=== PATIENT | male | born 1990 | race Caucasian/White ===

== ENCOUNTER 2019-11-27 03:40 | Emergency (ER) | payer SELFPAY ==
--- NOTE | 2019-11-27 03:45 | ECG_ITS ---
Measurements Intervals [place] Rate: 115 P: 57 MO: 153 QRS: 56 QRSD: 98 T: 57 QT: 314 QTc: 435 SINUS TACHYCARDIA ABNORMAL RHYTHM ECG No previous ECG available for comparison Electronically Signed On 11-27-2019 9:13:59 ENGINEERING COORDINATOR by Noah Arriola M.D. [id number]
--- NOTE | 2019-11-27 03:45 | XR_ITS ---
WS: [id number] XR chest 1V portable [id number] REASON FOR EXAM: cough FINDINGS: Both lung schneider are well aerated. No definite pneumonic consolidation, pulmonary edema, or pleural effusion. The heart was not enlarged. No osseous abnormalities. The hilum and apices are normal. XR/XR chest 1V portable [id number] IMPRESSION: No active cardiopulmonary changes.
--- NOTE | 2019-11-27 03:51 | ED_ITS ---
Entered by Jackie Bejarano, acting as scribe for Kay Taylor HPI - Seizure General: Chief Complaint: Seizure Stated Complaint: SEIZURE LIKE ACTIVITY Time Seen by Provider: 11/27/19 03:41 Source: patient and EMS Mode of arrival: EMS History of Present Illness: HPI Narrative: 29 y/o male presents to the ED with complaint of reported seizures. Pt told EMS he has had 3 seizures in 2 days and does not take any regular medications or see a Neurologist. Pt was very vague in his recount of the story. EMS states he walked to the cot with no difficulty. MD complaint: seizure and possible seizure Trauma: No Seizure History: Yes Place: Home Possible Precipitating Event: other (stress) Associated symptoms: Deny chest pain, chills, confusion, diaphoresis, fever(s), malaise or syncope Review of Systems General: Reports: other (negative unless marked) Const: Denies: fever, chills, body aches, fatigue, malaise or diaphoresis Eyes: Denies: change in vision or blurry vision ENMT: Denies: throat pain, painful swallowing, hoarseness, ear pain, ear discharge, Change in hearing or nasal discharge Card: Denies: chest pain, palpitations, irregular heart rhythm, syncope, pre- syncope, shortness of breath on exertion or shortness of breath when lying down Resp: Denies: shortness of breath, productive cough, non-productive cough, wheezing, coughing up blood or chest congestion GI: Denies: abdominal pain, nausea, vomiting, vomiting blood, coffee grounds in vomit, diarrhea, constipation, cramping, blood in stool or black tarry stool : Denies: flank pain, difficulty urinating, painful urination, urinary frequency, urinary urgency, decreased urine ouput, urinary incontinence or blood in urine Musc: Denies: neck pain, back pain, extremity pain, extremity swelling, joint pain, joint swelling, joint warmth or joint stiffness Skin/Breast: Denies: rash, skin tenderness or yellow skin Neuro: Denies: headache, numbness in extremities, weakness in extremities, changes in sensation, lack of coordination, difficulty walking, dizziness, vertigo or confusion Endo: Denies: excessive thirst, tired all the time, cold intolerance, excessive sweating, flushing or hot flashes Jassi/Lymph: Denies: easy bruising, easy bleeding, petechiae or enlarged lymph nodes All/Imm: Denies: hives, throat swelling, tongue swelling, facial swelling or acute wheezing PFSH ED PFSH: Social History Smoking and tobacco status: current every day smoker Physical Exam Const: COMMON NORMALS: no apparent distress, oriented x3, no limitations, healthy appearing and well nourished EXAM LIMITATIONS: no altered mental status GENERAL APPEARANCE: cooperative, well kempt and well developed ORIE NTATION/CONSCIOUSNESS: Yes awake HENMT: COMMON NORMALS: normocephalic, head/scalp atraumatic, hearing grossly normal bilaterally, external ears normal, EAC's normal, external nose normal and moist oral mucous membranes HEAD & SCALP: normal to inspection, normocephalic and atraumatic FACE & SINUS: normal facial exam and face symmetric NOSE: external nose normal and nares normal EXTERNAL EAR: Yes external ears normal EXTERNAL AUDITORY CANAL: EAC's normal MOUTH: oral and palatal mucosa normal and tongue normal Eye: COMMON NORMALS: PERRL, EOMs intact bilaterally, conjunctivae normal and no scleral icterus GENERAL EYE: normal appearance of both eyes and normal light reflex CONJUNCTIVA: Yes conjunctivae normal SCLERA: sclerae normal CORNEA: Yes corneas normal PUPIL: Yes PERRL DIRECT OPHTHALMOSCOPY: Yes normal light reflex Neck/C-Spine: COMMON NORMALS: full ROM, no lymphadenopathy, supple, no meningeal signs and no JVD GENERAL: Yes normal visual inspection and Yes trachea midline CERVICAL SPINE: Yes cervical ROM normal Chest: COMMONS NORMALS: inspection of chest normal and palpation of chest normal Resp: COMMON NORMALS: normal respiratory effort, no retractions, no use of accessory muscles and clear to auscultation bilaterally EFFORT & INSPECTION: Yes able to speak in complete sentences AUSCULTATION: clear to auscultation bilaterally Cardio: COMMON NORMALS: no JVD, regular rate, regular rhythm, S1 normal heart sound, S2 normal heart sound, no gallops, no clicks, no murmurs and no rub JUGULAR VENOUS DISTENTION: no JVD RATE: regular rate RHYTHM: regular rhythm HEART SOUNDS: S1 normal and S2 normal GI: COMMON NORMALS: soft to palpation, non-tender, no hepatosplenomegaly and no masses INSPECTION: Yes normal to inspection PALPATION: Yes soft and Yes no hepatosplenomegaly : COMMON NORMALS: Yes no CVA tenderness BLADDER/KIDNEY EXAM: Yes no CVA tenderness Back/Pelvis: COMMON NORMALS: no CVA tenderness, thoracic and lumbar spine normal to inspection, no thoracic nor lumbar tenderness and thoraco-lumbar ROM normal Extremity: COMMON NORMALS: normal to inspection, full ROM, normal capillary refill, no joint enlargement, no clubbing, cyanosis or edema and no calf tenderness Neuro: COMMON NORMALS: oriented x3, CN's II-XII intact bilaterally, moves all extremities, no focal motor deficits and no sensory deficits noted MENINGEAL SIGNS: Yes no meningeal signs Psych: APPEARANCE: Yes well kempt Skin: COMMON NORMALS: no rashes or lesions noted, skin turgor normal, no jaundice, no petechiae and no mottling GENERAL SKIN EXAM: no rashes or lesions noted and turgor normal Course Vital Signs: Vital signs: Vital Signs Temperature 98.4 F 11/27/19 04:02 Pulse Rate 110 H 11/27/19 04:02 Respiratory Rate 16 11/27/19 04:02 Blood Pressure 142/100 11/27/19 04:02 Pulse Oximetry 96 11/27/19 04:02 MDM - Seizure MDM Narrative: Medical decision making narrative: 0530 -Mr. Mabry is sleepy but will arouse. He would not give us the name of anyone that he can call to come pick him up. We will continue to monitor him until he is suitable to either be discharged to his own care or he can give us the name of someone to evaluate him. Urinalysis is still pending. There is no sign of trauma so I therefore do not believe he needs any CT scans or further imaging. Lab Data: Attestation: I reviewed the patient's lab results. Labs: Lab Results 11/27/19 11/27/19 Range/Units 03:55 03:55 WBC 11.1 H (4.0-10.0) 10^3/ uL RBC 5.22 (4.1-5.3) 10^6/u L Hgb 14.7 (11.7-16.6) g/dL Hct 42.7 (42.0-52.0) % MCV 81.8 (80-94) fL MCH 28.2 (28.0-34.0) pg MCHC 34.4 (30.0-36.0) g/dL RDW 13.2 (12.1-15.1) % Plt Count 214 (130-400) 10^3/c mm MPV 10.3 (7.4-10.4) fL Neut % (Auto) 78.0 % Lymph % (Auto) 13.7 % [place] % (Auto) 7.3 % Eos % (Auto) 0.5 % Baso % (Auto) 0.3 % Neut # (Auto) 8.7 H (1.8-7.7) 10^3/u L Lymph # (Auto) 1.5 (0.8-4.8) 10^3/u L [place] # (Auto) 0.8 (0.2-0.9) 10^3/u L Eos # (Auto) 0.1 (0.0-0.8) 10^3/u L Baso # (Auto) 0.0 (0.0-0.1) 10^3/u L Nucleated RBC % (a uto) 0 % Nucleated RBCs # 0.0 /100WBC Sodium 138 (136-145) mmol/L Potassium 3.7 (3.5-5.1) mmol/L Chloride 101 (98-107) mmol/L Carbon Dioxide 25 (22-29) mmol/L Anion Gap 15.7 (5-19) BUN 16 (6-20) mg/dL Creatinine 1.3 H (0.7-1.2) mg/dL GFR Calculation 65.3 L (90-130) mL/min Glucose 132 H (65-115) mg/dL Calcium 10.0 (8.5-10.5) mg/dL Total Bilirubin 0.2 (0.15-1.2) mg/dL AST 18 (0-40) U/L ALT 21 (0-41) U/L Alkaline Phosphata se 88 (40-130) IU/L Total Protein 8.0 (6.6-8.7) g/dL Albumin 4.0 (3.5-5.2) g/dL Globulin 4.0 (1.3-4.6) g/dL Ethyl Alcohol < 10 (0-10) mg/dL EKG Data^: EKG 1: Attestation: I personally reviewed and interpreted this EKG as follows: EKG interpretation date: 11/27/19 EKG interpretation time: 05:04 Interpretation: Sinus tachycardia 115 beats a minute, no acute ST-T wave changes. Artifact present. Discharge Plan Discharge Condition: Stable Sign Out Sign Out Data: Sign Out Comment: Case turned over to Dr. Cordova at change of shift. Last updated by Kay Taylor at 11/27/19 05:36 Coding Level of Care Code ED Fashion Journalist for Chg Fwd Exam Comprehensive The documentation recorded by the scribeDarci Ashley, accurately reflects the service I personally performed and the decisions made by me, Kay Taylor Nov 27, 2019 03:40
[2019-11-27] MEDS: LORazepam 2 mg/mL INJ 1 mL 1 MG IVP (03:58)
[2019-11-27] MEDS: sodium chloride 0.9% 1,000 ML 999 ML IV (03:58)
[2019-11-27] MEDS: ondansetron 2 mg/ML SDV 2 mL 4 MG IVP (03:59)
[2019-11-27 04:00] LABS: Basophils % 0.3 %; Eosinophils # 0.1 10^3/uL (0.0-0.8); Eosinophils % 0.5 %; Hematocrit 42.7 % (42.0-52.0); Hemoglobin 14.7 g/dL (11.7-16.6); Lymphocytes # 1.5 10^3/uL (0.8-4.8); Lymphocytes % 13.7 %; Mean Corpuscular HGB Conc 34.4 g/dL (30.0-36.0); Mean Corpuscular Hemoglobin 28.2 pg (28.0-34.0); Mean Corpuscular Volume 81.8 fL (80-94); Mean Platelet Volume 10.3 fL (7.4-10.4); Monocytes # 0.8 10^3/uL (0.2-0.9); Monocytes % 7.3 %; Neutrophils # 8.7 10^3/uL (1.8-7.7); Nucleated Red Blood Cells % 0 %; Platelet Count 214 10^3/cmm (130-400); Red Blood Count 5.22 10^6/uL (4.1-5.3); Red Cell Distribution Width 13.2 % (12.1-15.1); White Blood Count 11.1 10^3/uL (4.0-10.0)
[2019-11-27 04:02] VITALS: BP 142/100; PULSE 110; RESP 16; TEMP 36.9; O2SAT 96; BMI 22.4
[2019-11-27 04:14] LABS: Alanine Aminotransferase 21 U/L (0-41); Alkaline Phosphatase 88 IU/L (40-130); Anion Gap 15.7 (5-19); Aspartate Amino Transferase 18 U/L (0-40); Blood Urea Nitrogen 16 mg/dL (6-20); Carbon Dioxide 25 mmol/L (22-29); Chloride 101 mmol/L (98-107); Glomerular Filtration Rate 65.3 mL/min (90-130); Glucose 132 mg/dL (65-115); Potassium 3.7 mmol/L (3.5-5.1); Sodium 138 mmol/L (136-145); Total Bilirubin 0.2 mg/dL (0.15-1.2)
--- NOTE | 2019-11-27 04:17 | PC.NURSE ---
Introduced self to patient and initiated vital signs. Patient presents A&O x 4. NAD, ABCs intact, MAEW and agreeable to treatment. Respirations are even and unlabored. Pt states that the chief complaint for the ER visit today is due to seizures witnessed by mother but not EMS. IV observed in left AC. Pt denies any vision disturbances or lightheadedness. Bed left in lowest position in semi-fowlers with side rails up. Reassured patient of needs and will continue to monitor.
[2019-11-27 04:21] LABS: Alcohol Level < 10 mg/dL (0-10)
[2019-11-27 05:59] VITALS: BP 128/87; PULSE 106; RESP 16; O2SAT 99
[2019-11-27 06:17] LABS: Add Urine Culture? No; Amorphous Sediment Urine 2+; Bacteria Urine 1+; Bilirubin Urine Neg (NEGATIVE); Blood Urine Neg (Negative); Glucose Urine UA Norm (Normal); Ketones Urine Negative (Negative); Leukocyte Esterase Urine Negative (Negative); Nitrate Urine Negative (Negative); Protein Urine Neg (Negative); Specific Gravity, Urine 1.025 (1.005-1.030); Urine Appearance Hazy (CLEAR); Urine Color Yellow (Yellow); Urobilinogen Urine Norm (Negative); pH Urine 5 (5-7)
[2019-11-27 06:21] LABS: Barbiturates Screen Urine Negative (Negative); Benzodiazepines Screen Urine Negative (Negative); Cocaine Screen Urine Negative (Negative); Opiate Screen Urine Negative (Negative); PCP Screen Urine Negative (Negative); THC Screen Urine Negative (Negative)
[2019-11-27 06:23] LABS: Amphetamines Screen Urine Positive (Negative)
--- NOTE | 2019-11-27 10:18 | PC.SOCIAL ---
Was contacted by [employer] C[employer] to see if patient could get transportation home. It appears that patient may have Medicaid. Called [facility] and they state patient is inactive and his insurance on 06/30/19. Called samantha Gallardodata warehouse developer back and let her know. There are no transportation resources for patient. He will either need to find a ride or pay for a cab.
== END 2019-11-27 05:59 | disposition home or self-care (01) ==
PROVIDERS: Emergency Medicine; Emergency Provider Emergency Medicine
DX: R56.9 Unspecified convulsions (principal); F17.200 Nicotine dependence, unspecified, uncomplicated
CPT/HCPCS: 71045; 80053; 80307; 81001; 85025; 93005; 96360; 96361; 96374; 96375; 99284; A9270; J2060; J2405; J7030

== ENCOUNTER 2020-06-19 12:12 | Emergency (ER) | payer SELFPAY ==
[2020-06-19 12:13] VITALS: O2SAT 96
[2020-06-19 12:21] VITALS: BP 120/68; PULSE 125; RESP 18; TEMP 37.1; O2SAT 93; BMI 30.3
--- NOTE | 2020-06-19 12:21 | XRR_ITS ---
PROCEDURE INFORMATION: Exam: XR Chest, 1 View Exam date and time: 06/19/2020 12:48 PM Age: 30 years old Clinical indication: Other: Seizure TECHNIQUE: Imaging protocol: XR of the chest Views: 1 view. COMPARISON: CR XR chest 1V portable [id number] 11/27/2019 3:46 AM FINDINGS: Lungs: Unremarkable. No consolidation. Pleural space: Unremarkable. No pleural effusion. No pneumothorax. Heart/Mediastinum: Unremarkable. No cardiomegaly. Bones/joints: Unremarkable. XR/XR chest 1V portable [id number] IMPRESSION: No acute findings.
--- NOTE | 2020-06-19 12:21 | ECG_ITS ---
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 Measurements Intervals [place] Rate: 91 P: 47 HI: 139 QRS: 49 QRSD: 91 T: 62 QT: 325 QTc: 401 Interpretive Statements SINUS RHYTHM WITH MARKED SINUS ARRHYTHMIA Compared to ECG 11/27/2019 05:04:31 Sinus tachycardia no longer present Electronically Signed On 06-19-2020 17:01:41 CDT by Katrin Harvey M.D. [id number]
[2020-06-19 12:34] LABS: Basophils # 0.1 10^3/uL (0.0-0.1); Basophils % 0.9 %; Eosinophils # 0.3 10^3/uL (0.0-0.8); Eosinophils % 2.4 %; Hematocrit 48.4 % (42.0-52.0); Hemoglobin 15.9 g/dL (11.7-16.6); Mean Corpuscular HGB Conc 32.9 g/dL (30.0-36.0); Mean Corpuscular Hemoglobin 29.7 pg (28.0-34.0); Mean Corpuscular Volume 90.5 fL (80-94); Mean Platelet Volume 10.7 fL (7.4-10.4); Monocytes # 1.3 10^3/uL (0.2-0.9); Monocytes % 9.4 %; Neutrophils # 6.11 10^3/uL (1.8-7.7); Nucleated Red Blood Cells % 0 %; Platelet Count 289 10^3/cmm (130-400); Red Blood Count 5.35 10^6/uL (4.1-5.3); Red Cell Distribution Width 13.2 % (12.1-15.1); White Blood Count 13.9 10^3/uL (4.0-10.0)
[2020-06-19 12:56] LABS: Alanine Aminotransferase 47 U/L (0-41); Albumin Level 4.9 g/dL (3.5-5.2); Alkaline Phosphatase 89 IU/L (40-130); Anion Gap 33.7 (5-19); Aspartate Amino Transferase 40 U/L (0-40); Blood Urea Nitrogen 19 mg/dL (6-20); Calcium 10.1 mg/dL (8.5-10.5); Chloride 97 mmol/L (98-107); Globulin 3.8 g/dL (1.3-4.6); Glucose 148 mg/dL (65-115); Osmolality Calculated 281 mOsm/kg (285-295); Potassium 3.7 mmol/L (3.5-5.1); Sodium 136 mmol/L (136-145); Total Bilirubin 0.3 mg/dL (0.15-1.2); Total Protein 8.7 g/dL (6.6-8.7)
[2020-06-19 13:00] LABS: Slide Review Slide Review Perform
--- NOTE | 2020-06-19 13:08 | W.ED.SEIZURE ---
HPI - Seizure General: Chief Complaint: Seizure Stated Complaint: SEIZURE LIKE ACTIVITY Time Seen by Provider: 06/19/20 12:13 Source: patient Mode of arrival: ambulatory Limitations: no limitations History of Present Illness: HPI Narrative: Gurmeet is a nice 30-year-old male who comes in after having a seizure. Patient has a history of seizures and takes medicine for this. Patient arrives to the ER postictal still and cannot remember what he is supposed to take for seizures. He does see Dr. Louis. Patient does not think he had loss of sleep and he has not had any alcohol recently. Patient was at work when he went into the bathroom and they are heard him shaking on the floor. Patient denies any pain focally other than just feeling sore and achy all over. He denies any nausea vomiting, fever or any other recent ill type symptoms. EMS noted the patient was postictal in route but is improved upon arrival here. Seizure History: Yes Associated symptoms: Deny chest pain, chills, confusion, diaphoresis, fever(s), malaise or syncope Review of Systems Const: Denies: fever(s), chills, body aches, fatigue, malaise or diaphoresis Eyes: Denies: change in vision, blurry vision, photophobia, eye discomfort, eye discharge or eye redness ENMT: Denies: throat pain, odynophagia, hoarseness, swelling of lips/tongue, ear or mastoid pain, ear discharge, change in hearing or nasal discharge Card: Denies: chest pain, palpitations, irregular heart rhythm, edema, lightheadedness, syncope, pre-syncope, dyspnea on exertion or orthopnea Resp: Denies: dyspnea, productive cough, non-productive cough, wheezing, hemoptysis or chest congestion GI: Denies: abdominal pain, nausea, vomiting, hematemesis, coffee ground emesis, heartburn, diarrhea, constipation, GI cramping, hematochezia or melena : Denies: flank pain, dysuria, urinary frequency, urinary urgency or hematuria Musc: Denies: neck pain, back pain, extremity pain, extremity swelling, joint pain, joint swelling, joint redness, joint warmth or joint stiffness Skin/Breast: Denies: rash, pruritus, erythema or skin tenderness Neuro: Denies: headache(s), numbness in extremities, weakness in extremities, sensory changes, lack of coordination, difficulty walking, dizziness, vertigo, confusion, Slurred speech present or seizure-like activity Jassi/Lymph: Denies: easy bruising, easy bleeding, petechiae, purpura or enlarged lymph nodes All/Imm: Denies: urticaria, throat swelling, tongue swelling, facial swelling or acute wheezing PFSH ED PFSH: Medical History (Updated 06/19/20 @ 15:18 by Kay Taylor) Seizures Social History Smoking and tobacco status: current every day smoker Current gender identity: Male Physical Exam Const: COMMON NORMALS: no acute distress, patient oriented x3, no limitations, healthy appearing and well nourished GENERAL APPEARANCE: cooperative, well kempt and well developed HENMT: COMMON NORMALS: normocephalic, atraumatic, external ears normal, EAC's normal and Normal external nose present HEAD & SCALP: normal to inspection, normocephalic and atraumatic FACE & SINUS: normal facial exam and face symmetric NOSE: Normal external nose present and Normal nares present EXTERNAL EAR: Yes external ears normal EXTERNAL AUDITORY CANAL: EAC's normal MOUTH: Normal oral and palatal mucosa present, lip normal and tongue normal Eye: COMMON NORMALS: Equal, round and reactive pupils present and conjunctivae normal GENERAL EYE: appearance normal, both eyes and all related structures ALIGNMENT: Yes alignment normal PERIORBITAL: periorbital findings normal EYELID: eyelids normal CONJUNCTIVA: Yes conjunctivae normal SCLERA: sclerae normal PUPIL: Yes Equal, round and reactive pupils present Neck/C-Spine: COMMON NORMALS: full ROM, no lymphadenopathy, supple, no meningeal signs and no JVD GENERAL: Yes normal visual inspection and Yes trachea midline Chest: COMMONS NORMALS: normal inspection of the chest and normal palpation of entire chest wall Resp: COMMON NORMALS: normal respiratory effort, No retractions, No use of accessory muscles and clear to auscultation bilaterally EFFORT & INSPECTION: Yes able to speak in complete sentences and Yes symmetric chest movement AUSCULTATION: clear to auscultation bilaterally, no crackles, no rales, no rhonchi and no wheezes Cardio: COMMON NORMALS: no JVD, regular rate, regular rhythm, S1 normal heart sound present and S2 normal heart sound present RATE: regular rate RHYTHM: regular rhythm HEART SOUNDS: S1 normal heart sound present, S2 normal heart sound present, no click, no gallops, no murmurs, no rubs and abnormal split S2 GI: COMMON NORMALS: Soft to palpation and No hepatosplenomegaly present PALPATION: Yes Soft to palpation, No Tenderness to palpation present (GI), No Guarding due to palpation present (GI), No Rigid due to palpation, Yes No hepatosplenomegaly present, No Hernia present, No Palpable mass present and No Pulsatile mass present : COMMON NORMALS: Yes no CVA tenderness BLADDER/KIDNEY EXAM: Yes no CVA tenderness Back/Pelvis: COMMON NORMALS: no CVA tenderness, thoracic and lumbar spine normal to inspection, no thoracic nor lumbar tenderness and thoraco-lumbar ROM normal Extremity: COMMON NORMALS: normal to inspection, full ROM, capillary refill normal, no joint enlargement, no clubbing, cyanosis or edema and no calf tenderness Neuro: COMMON NORMALS: patient oriented x3, CN's II-XII intact bilaterally, moves all extremities, no focal motor deficits and no sensory deficits noted MENINGEAL SIGNS: Yes no meningeal signs SPEECH: speech normal Psych: COMMON NORMALS: mental status grossly normal, Normal thought process present, cooperative, normal affect, speech normal and activity/motor behavior normal APPEARANCE: Yes well kempt SPEECH: Yes normal speech THOUGHT PROCESS: Normal thought process present Skin: COMMON NORMALS: no rashes or lesions noted, turgor normal, no jaundice, no petechiae and no mottling GENERAL SKIN EXAM: no rashes or lesions noted and turgor normal Course Vital Signs: Vital signs: Vital Signs Temperature 98.8 F 06/19/20 12:21 Pulse Rate 125 H 06/19/20 12:21 Respiratory Rate 18 06/19/20 12:21 Blood Pressure 120/68 06/19/20 12:21 Pulse Oximetry 93 06/19/20 12:21 MDM - Seizure MDM Narrative: Medical decision making narrative: Gurmeet is a nice 30-year-old male comes after breakthrough seizure. I am concerned about a possible toxic ingestion. He has normal lactate but a profound anion gap. Acetaminophen, ketones and other causes for an anion gap are negative. It is possible he may have cleared his lactate quickly but the acidosis is not resolved. He denies any toxic alcohol ingestion or other illicit substance ingestions. Secondary to degree of this though I have endorsed the case to Dr. Parry who agrees to admit the patient for further evaluation and care. 1611 -the patient has decided he wants to go. He understands the risks of leaving including or severe permanent disability. He would not stay long enough for me to give him written instructions but I did review with him in person seizure precautions. Repeat BMP is pending I still think his acidosis is likely related to the seizure as clinically the patient appears stable. He was instructed not to drive and to follow all seizure precautions which she says he is very familiar with. He will take his seizure medications as he is supposed to. Again I advised the patient at length including in front of his girlfriend but despite my warnings the patient wants to leave AGAINST MEDICAL ADVICE. Lab Data: Labs: Lab Results 06/19/20 06/19/20 06/19/20 Range/Units 12:04 12:04 12:04 WBC 13.9 H (4.0-10.0) 10^3/ uL RBC 5.35 H (4.1-5.3) 10^6/u L Hgb 15.9 (11.7-16.6) g/dL Hct 48.4 (42.0-52.0) % MCV 90.5 (80-94) fL MCH 29.7 (28.0-34.0) pg MCHC 32.9 (30.0-36.0) g/dL RDW 13.2 (12.1-15.1) % Plt Count 289 (130-400) 10^3/c mm MPV 10.7 H (7.4-10.4) fL Neut % (Auto) 44.0 % Lymph % (Auto) 43.0 % [place] % (Auto) 9.4 % Eos % (Auto) 2.4 % Baso % (Auto) 0.9 % Neut # (Auto) 6.11 (1.8-7.7) 10^3/u L Lymph # (Auto) 6.0 H (0.8-4.8) 10^3/u L [place] # (Auto) 1.3 H (0.2-0.9) 10^3/u L Eos # (Auto) 0.3 (0.0-0.8) 10^3/u L Baso # (Auto) 0.1 (0.0-0.1) 10^3/u L Nucleated RBC % (a uto) 0 % Nucleated RBCs # 0.0 /100WBC Specimen Type Sample Site ABG pH (7.35-7.45) ABG pCO2 (35-45) mmHg ABG pO2 (80.0-100.0) mmH g ABG HCO3 (22-26) mmol/L ABG Base Excess (-2.0-2.0) mmol/ L Daniel Test Hematocrit (42-52) % O2 Delivery Device FiO2 % Lockstitch Sleeve Setter ID Sodium 136 (136-145) mmol/L Potassium 3.7 (3.5-5.1) mmol/L Chloride 97 L (98-107) mmol/L Carbon Dioxide 9 L (22-29) mmol/L Anion Gap 33.7 H (5-19) BUN 19 (6-20) mg/dL Creatinine 1.5 H (0.7-1.2) mg/dL GFR Calculation 55.0 L (90-130) mL/min Glucose 148 H (65-115) mg/dL Calculated Osmolal ity 281 L (285-295) mOsm/k g Lactic Acid (0.5-2.2) mmol/L Calcium 10.1 (8.5-10.5) mg/dL Magnesium 2.0 (1.7-2.3) mg/dL Total Bilirubin 0.3 (0.15-1.2) mg/dL AST 40 (0-40) U/L ALT 47 H (0-41) U/L Alkaline Phosphata se 89 (40-130) IU/L Creatine Kinase 325 H* (39-308) U/L Total Protein 8.7 (6.6-8.7) g/dL Albumin 4.9 (3.5-5.2) g/dL Globulin 3.8 (1.3-4.6) g/dL Urine Color (Yellow) Urine Appearance (CLEAR) Urine pH (5-7) Ur Specific Gravit y (1.005-1.030) Urine Protein (Negative) Urine Glucose (UA) (Normal) Urine Ketones (Negative) Urine Blood (Negative) Urine Nitrate (Negative) Urine Bilirubin (NEGATIVE) Urine Urobilinogen (Negative) mg/dL Ur Leukocyte Taty ase (Negative) Salicylates < 0.3 L (3-10) mg/dL Urine Opiates Scre en (Negative) ng/mL Acetaminophen < 5.0 L (10-30) ug/mL Ur Barbiturates Sc reen (Negative) ng/mL Ur Phencyclidine S crn (Negative) ng/mL Ur Amphetamines Sc reen (Negative) ng/mL U Benzodiazepines Scrn (Negative) ng/mL Urine Cocaine Scre en (Negative) ng/mL U Marijuana (THC) Screen (Negative) ng/mL Ethyl Alcohol < 10 (0-10) mg/dL Serum Ketones (Negative) 06/19/20 06/19/20 06/19/20 Range/Units 12:04 13:30 13:51 WBC (4.0-10.0) 10^3/ uL RBC (4.1-5.3) 10^6/u L Hgb (11.7-16.6) g/dL Hct (42.0-52.0) % MCV (80-94) fL MCH (28.0-34.0) pg MCHC (30.0-36.0) g/dL RDW (12.1-15.1) % Plt Count (130-400) 10^3/c mm MPV (7.4-10.4) fL Neut % (Auto) % Lymph % (Auto) % [place] % (Auto) % Eos % (Auto) % Baso % (Auto) % Neut # (Auto) (1.8-7.7) 10^3/u L Lymph # (Auto) (0.8-4.8) 10^3/u L [place] # (Auto) (0.2-0.9) 10^3/u L Eos # (Auto) (0.0-0.8) 10^3/u L Baso # (Auto) (0.0-0.1) 10^3/u L Nucleated RBC % (a uto) % Nucleated RBCs # /100WBC Specimen Type Sample Site ABG pH (7.35-7.45) ABG pCO2 (35-45) mmHg ABG pO2 (80.0-100.0) mmH g ABG HCO3 (22-26) mmol/L ABG Base Excess (-2.0-2.0) mmol/ L Daniel Test Hematocrit (42-52) % O2 Delivery Device FiO2 % Lockstitch Sleeve Setter ID Sodium (136-145) mmol/L Potassium (3.5-5.1) mmol/L Chloride (98-107) mmol/L Carbon Dioxide (22-29) mmol/L Anion Gap (5-19) BUN (6-20) mg/dL Creatinine (0.7-1.2) mg/dL GFR Calculation (90-130) mL/min Glucose (65-115) mg/dL Calculated Osmolal ity (285-295) mOsm/k g Lactic Acid 2.1 (0.5-2.2) mmol/L Calcium (8.5-10.5) mg/dL Magnesium (1.7-2.3) mg/dL Total Bilirubin (0.15-1.2) mg/dL AST (0-40) U/L ALT (0-41) U/L Alkaline Phosphata se (40-130) IU/L Creatine Kinase (39-308) U/L Total Protein (6.6-8.7) g/dL Albumin (3.5-5.2) g/dL Globulin (1.3-4.6) g/dL Urine Color Yellow (Yellow) Urine Appearance Clear (CLEAR) Urine pH 5 (5-7) Ur Specific Gravit y 1.020 (1.005-1.030) Urine Protein Neg (Negative) Urine Glucose (UA) Norm (Normal) Urine Ketones Negative (Negative) Urine Blood Neg (Negative) Urine Nitrate Negative (Negative) Urine Bilirubin Neg (NEGATIVE) Urine Urobilinogen Neg (Negative) mg/dL Ur Leukocyte Taty ase Negative (Negative) Salicylates (3-10) mg/dL Urine Opiates Scre en (Negative) ng/mL Acetaminophen (10-30) ug/mL Ur Barbiturates Sc reen (Negative) ng/mL Ur Phencyclidine S crn (Negative) ng/mL Ur Amphetamines Sc reen (Negative) ng/mL U Benzodiazepines Scrn (Negative) ng/mL Urine Cocaine Scre en (Negative) ng/mL U Marijuana (THC) Screen (Negative) ng/mL Ethyl Alcohol (0-10) mg/dL Serum Ketones Negative (Negative) 06/19/20 06/19/20 Range/Units 13:51 14:39 WBC (4.0-10.0) 10^3/ uL RBC (4.1-5.3) 10^6/u L Hgb (11.7-16.6) g/dL Hct (42.0-52.0) % MCV (80-94) fL MCH (28.0-34.0) pg MCHC (30.0-36.0) g/dL RDW (12.1-15.1) % Plt Count (130-400) 10^3/c mm MPV (7.4-10.4) fL Neut % (Auto) % Lymph % (Auto) % [place] % (Auto) % Eos % (Auto) % Baso % (Auto) % Neut # (Auto) (1.8-7.7) 10^3/u L Lymph # (Auto) (0.8-4.8) 10^3/u L [place] # (Auto) (0.2-0.9) 10^3/u L Eos # (Auto) (0.0-0.8) 10^3/u L Baso # (Auto) (0.0-0.1) 10^3/u L Nucleated RBC % (a uto) % Nucleated RBCs # /100WBC Specimen Type Arterial Sample Site Brachial, left ABG pH 7.41 (7.35-7.45) ABG pCO2 37.4 (35-45) mmHg ABG pO2 82.7 (80.0-100.0) mmH g ABG HCO3 23.7 (22-26) mmol/L ABG Base Excess -0.6 (-2.0-2.0) mmol/ L Daniel Test Pos Hematocrit 45.4 (42-52) % O2 Delivery Device Room air FiO2 21.0 % Lockstitch Sleeve Setter ID Cak Sodium (136-145) mmol/L Potassium (3.5-5.1) mmol/L Chloride (98-107) mmol/L Carbon Dioxide (22-29) mmol/L Anion Gap (5-19) BUN (6-20) mg/dL Creatinine (0.7-1.2) mg/dL GFR Calculation (90-130) mL/min Glucose (65-115) mg/dL Calculated Osmolal ity (285-295) mOsm/k g Lactic Acid (0.5-2.2) mmol/L Calcium (8.5-10.5) mg/dL Magnesium (1.7-2.3) mg/dL Total Bilirubin (0.15-1.2) mg/dL AST (0-40) U/L ALT (0-41) U/L Alkaline Phosphata se (40-130) IU/L Creatine Kinase (39-308) U/L Total Protein (6.6-8.7) g/dL Albumin (3.5-5.2) g/dL Globulin (1.3-4.6) g/dL Urine Color (Yellow) Urine Appearance (CLEAR) Urine pH (5-7) Ur Specific Gravit y (1.005-1.030) Urine Protein (Negative) Urine Glucose (UA) (Normal) Urine Ketones (Negative) Urine Blood (Negative) Urine Nitrate (Negative) Urine Bilirubin (NEGATIVE) Urine Urobilinogen (Negative) mg/dL Ur Leukocyte Taty ase (Negative) Salicylates (3-10) mg/dL Urine Opiates Scre en Negative (Negative) ng/mL Acetaminophen (10-30) ug/mL Ur Barbiturates Sc reen Negative (Negative) ng/mL Ur Phencyclidine S crn Negative (Negative) ng/mL Ur Amphetamines Sc reen Negative (Negative) ng/mL U Benzodiazepines Scrn Negative (Negative) ng/mL Urine Cocaine Scre en Negative (Negative) ng/mL U Marijuana (THC) Screen Negative (Negative) ng/mL Ethyl Alcohol (0-10) mg/dL Serum Ketones (Negative) EKG Data^: EKG 1: Attestation: I personally reviewed and interpreted this EKG as follows: EKG interpretation date: 06/19/20 EKG interpretation time: 13:26 Interpretation: Normal sinus rhythm with sinus arrhythmia at 91 beats a minute, nonspecific ST and T wave changes. No blocks, normal intervals. Discharge Plan Discharge Patient Disposition: Left Against Medical Advice Admit Provider: Emmanuel Parry Clinical Impression: Generalized seizure, Acidosis, metabolic Condition: Stable Coding Level of Care Code ED Robotics Technologist for Chg Fwd Exam Comprehensive
[2020-06-19 13:17] LABS: Carbon Dioxide 9 mmol/L (22-29)
[2020-06-19 13:18] LABS: Alcohol Level < 10 mg/dL (0-10); Creatine Phosphokinase 325 U/L (39-308)
[2020-06-19] MEDS: sodium chloride 0.9% 1,000 ML 999 ML IV (13:40)
[2020-06-19] MEDS: acetaminophen 500 mg Tablet 1000 MG PO (13:42)
[2020-06-19] MEDS: LORazepam 1 mg Tablet PO (13:42)
[2020-06-19 13:54] LABS: Lactic Sepsis W/Reflex 2.1 mmol/L (0.5-2.2)
[2020-06-19 13:59] LABS: Add Urine Microscopic? NO
[2020-06-19 14:06] LABS: Bilirubin Urine Neg (NEGATIVE); Blood Urine Neg (Negative); Glucose Urine UA Norm (Normal); Ketones Urine Negative (Negative); Leukocyte Esterase Urine Negative (Negative); Nitrate Urine Negative (Negative); Protein Urine Neg (Negative); Urine Appearance Clear (CLEAR); Urine Color Yellow (Yellow); Urobilinogen Urine Neg (Negative); pH Urine 5 (5-7)
[2020-06-19 14:10] LABS: Amphetamines Screen Urine Negative (Negative); Barbiturates Screen Urine Negative (Negative); Benzodiazepines Screen Urine Negative (Negative); Cocaine Screen Urine Negative (Negative); Opiate Screen Urine Negative (Negative); PCP Screen Urine Negative (Negative); THC Screen Urine Negative (Negative)
[2020-06-19 14:49] LABS: Ketone (Acetest) Serum Negative (Negative)
[2020-06-19 14:50] LABS: ABG PCO2 37.4 mmHg (35-45); ABG PH Result 7.41 (7.35-7.45); Arterial Blood Gas Hematocrit 45.4 % (42-52); Base Excess ABG -0.6 mmol/L (-2.0-2.0); Blood Gas Allen Test Pos; Blood Gas Operator Identificat CAK; Blood Gas Sample Site Brachial, left; Blood Gas Sample Type Arterial; HCO3 ABG 23.7 mmol/L (22-26); Oxygen Device ROOM AIR; PO2 ABG 82.7 mmHg (80.0-100.0)
[2020-06-19 14:51] LABS: Acetaminophen < 5.0 ug/mL (10-30); Salicylate < 0.3 mg/dL (3-10)
[2020-06-19 15:21] LABS: Reflex Lactate Order REFLEX LACTIC ORDERD
[2020-06-19 16:07] LABS: Lactic Acid level (Lactate) 0.8 mmol/L (0.5-2.2)
[2020-06-19 16:09] LABS: Blood Urea Nitrogen 17 mg/dL (6-20); Calcium 8.7 mg/dL (8.5-10.5); Carbon Dioxide 23 mmol/L (22-29); Chloride 103 mmol/L (98-107); Glomerular Filtration Rate 71.1 mL/min (90-130); Glucose 99 mg/dL (65-115); Osmolality Calculated 276 mOsm/kg (285-295); Sodium 135 mmol/L (136-145)
[2020-06-19 16:20] VITALS: BP 119/77; PULSE 93; RESP 17; O2SAT 98
== END 2020-06-19 16:23 | disposition left against medical advice (07) ==
LOC: ER 15:18 → MEDSURG 16:12
PROVIDERS: Emergency Provider Emergency Medicine
DX: G40.409 Other generalized epilepsy and epileptic syndromes, not intractable, without status epilepticus (principal); E87.2 Acidosis; Z53.21 Procedure and treatment not carried out due to patient leaving prior to being seen by health care provider; F17.210 Nicotine dependence, cigarettes, uncomplicated
CPT/HCPCS: 12345; 36415; 36600; 71045; 80048; 80053; 80306; 80307; 81003; 82009; 82550; 82803; 83605; 83735; 85025; 93005; 96360; 99283; 99284; J7030

== ENCOUNTER 2021-06-23 14:40 | Emergency (ER) | payer SELFPAY ==
[2021-06-23 15:25] VITALS: BP 132/75; PULSE 90; RESP 15; TEMP 36.7; O2SAT 97; BMI 30.3
--- NOTE | 2021-06-23 17:04 | XRR_ITS ---
PROCEDURE INFORMATION: Exam: XR Thoracic Spine Exam date and time: 06/23/2021 5:04 PM Age: 31 years old Clinical indication: Pain in thoracic spine; Additional info: Back pain after seizure TECHNIQUE: Imaging protocol: XR of the thoracic spine. Views: 3 views. COMPARISON: CR XR chest 1V portable [id number] 06/19/2020 12:59 PM FINDINGS: Bones/joints: Normal. No acute fracture. Normal alignment. Soft tissues: Unremarkable. XR/XR thoracic spine 3V* [id number] IMPRESSION: No acute findings.
--- NOTE | 2021-06-23 17:04 | XRR_ITS ---
PROCEDURE INFORMATION: Exam: XR Lumbosacral Spine Exam date and time: 06/23/2021 5:04 PM Age: 31 years old Clinical indication: Low back pain; Additional info: Back pain after seizure TECHNIQUE: Imaging protocol: XR of the lumbosacral spine. Views: 2 or 3 views. COMPARISON: No relevant prior studies available. FINDINGS: Bones/joints: Normal. No acute fracture. Normal alignment. Soft tissues: Unremarkable. XR/XR lumbar spine 2-3V* [id number] IMPRESSION: No acute findings.
[2021-06-23 17:30] VITALS: BP 135/113; PULSE 90; RESP 18; O2SAT 94
--- NOTE | 2021-06-23 17:30 | W.ED.SEIZURE ---
HPI - Seizure General: Chief Complaint: Seizure Stated Complaint: POST SEIZURE Time Seen by Provider: 06/23/21 16:49 History of Present Illness: HPI Narrative: This patient is a 31 year old male presenting after a seizure today. He has had a seizure history since he was 18 years old and is not currently on medications. He has been prescribed medications in the past - but can't tell me what he is supposed to take or when he took it last. He saw Dr. Louis many years ago. He had a seizure on 06/15 and had three in one day about a month before that. His girlfriend witnessed the seizure today and describes a grand mal seizure. She feels like he is about to have another one just by the way he is acting. complaint: seizure Onset (ago): hour(s) (2) Description of Episode: loss of consciousness, tonic-clonic movement, post-event confusion and other (bite tongue) -: minutes(s) (3) Witnessed: Yes - by Bystander Trauma: Yes (back pain) Seizure History: Yes Possible Precipitating Event: none Associated symptoms: Deny chest pain, chills, fever(s) or malaise Treatments prior to arrival: none Review of Systems General: Reports: 10 or more systems reviewed and unremarkable except in HPI and below Const: Denies: fever(s), chills, fatigue or malaise Eyes: Denies: change in vision ENMT: Denies: odynophagia Card: Denies: chest pain or swelling of feet/ankles Resp: Denies: dyspnea, productive cough or non-productive cough GI: Denies: abdominal pain, nausea or vomiting : Denies: flank pain Musc: Reports: back pain; Denies: neck pain Skin/Breast: Denies: rash Neuro: Denies: headache(s), numbness in extremities or weakness in extremities Jassi/Lymph: Denies: easy bruising or easy bleeding PFSH ED PFSH: Medical History Seizures Social History Smoking and tobacco status: current every day smoker Current gender identity: Male Physical Exam Const: COMMON NORMALS: no acute distress, patient oriented x3, no limitations and alert GENERAL APPEARANCE: cooperative and comfortable HENMT: HEAD & SCALP: normal to inspection FACE & SINUS: normal facial exam Eye: GENERAL EYE: appearance normal, both eyes and all related structures Neck/C-Spine: COMMON NORMALS: supple, no meningeal signs and no JVD Chest: COMMONS NORMALS: normal inspection of the chest Resp: COMMON NORMALS: normal respiratory effort, No use of accessory muscles and clear to auscultation bilaterally AUSCULTATION: clear to auscultation bilaterally Cardio: COMMON NORMALS: no JVD, regular rate, regular rhythm and No murmurs present (Cardio) RATE: regular rate RHYTHM: regular rhythm GI: COMMON NORMALS: Normal to inspection, nondistended, normoactive bowel sounds present, Soft to palpation and non-tender INSPECTION: Yes normal to inspection AUSCULTATION: Yes normoactive bowel sounds PALPATION: Yes Soft to palpation Back/Pelvis: COMMON NORMALS: thoracic and lumbar spine normal to inspection Extremity: COMMON NORMALS: normal to inspection Neuro: COMMON NORMALS: patient oriented x3, moves all extremities, no focal motor deficits and no sensory deficits noted SENSORIUM/ORIENTATION: Yes alert MENINGEAL SIGNS: Yes no meningeal signs Psych: COMMON NORMALS: mental status grossly normal, cooperative and normal affect Skin: COMMON NORMALS: no rashes or lesions noted and turgor normal GENERAL SKIN EXAM: no rashes or lesions noted and turgor normal Course ED course: On my exam, patient was alert and oriented - appropriate. Xrays for back pain. I don't think he needs further seizure work up as he has a history of similar seizures and is not on medications. He is open to restarting medication. I don't know what medication he was on previously and I was not able to find reference to it in the prior medical records - so I think keppra is a reasonable start. No driving. Needs neurology follow up. Vital Signs: Vital signs: Vital Signs Temperature 98.1 F 06/23/21 15:25 Pulse Rate 90 06/23/21 17:30 Respiratory Rate 18 06/23/21 17:30 Blood Pressure 135/113 06/23/21 17:30 Pulse Oximetry 94 06/23/21 17:30 MDM - Seizure MDM Narrative: Medical decision making narrative: Seizure - known seizure disorder and non-compliance with meds. Check back for fractures related to seizure activity. no other injuries apparent. Discharge Plan Discharge Patient Disposition: Home Clinical Impression: Seizures, Non compliance w medication regimen, Acute lumbar myofascial strain, Acute thoracic myofascial strain Condition: Stable Prescriptions: New Keppra 750 mg tablet 750 mg PO BID 14 Days Qty: 28 RF: 0 Discharge Orders: Discharge ED (Routine); Ordered 06/23/21 Ordered By: Sonal Hanley Referrals: Lashay Louis MD [Physician] - Discharge Diet: Usual diet Discharge Activity: Increase activity as tolerated Patient Instructions: Opioid Safety Activity Restrictions/Additional Instructions: No Driving. Take the seizure medicine as prescribed. Use ibuprofen or tylenol for back pain. Follow up with neurology for further management of the seizures. Coding Level of Care Code ED Superintendent Of Schools for Yumi Clifford Exam Comprehensive
[2021-06-23] MEDS: LORazepam 2 mg/mL INJ 1 mL IVP (17:33)
[2021-06-23 18:54] VITALS: BP 124/89; PULSE 86; RESP 22; O2SAT 98
[2021-06-23 19:30] VITALS: BP 130/92; PULSE 85; RESP 18; O2SAT 94
[2021-06-23 19:42] VITALS: PULSE 85; RESP 18
== END 2021-06-23 19:40 | disposition home or self-care (01) ==
PROVIDERS: Emergency Provider Emergency Medicine
DX: G40.909 Epilepsy, unspecified, not intractable, without status epilepticus (principal); Z91.14 Patient's other noncompliance with medication regimen; S39.012A Strain of muscle, fascia and tendon of lower back, initial encounter; S29.012A Strain of muscle and tendon of back wall of thorax, initial encounter; F17.210 Nicotine dependence, cigarettes, uncomplicated; X58.XXXA Exposure to other specified factors, initial encounter
CPT/HCPCS: 72072; 72100; 96374; 96375; 99284; J1953; J2060

== ENCOUNTER 2022-07-13 06:53 | Emergency (ER) | payer SELFPAY ==
[2022-07-13] VITALS (19 sets, daily range): BP systolic 120–154; BP diastolic 73–115; PULSE 94–133; RESP 13–33; TEMP 37.1; O2SAT 70–98; BMI 28.3
--- NOTE | 2022-07-13 07:00 | PC.NURSE ---
SEIZURE PADS APPLIED TO BED RAILS
--- NOTE | 2022-07-13 07:03 | ECG_ITS ---
[facility] Test Date: 2022-07-13 Pat Name: Gurmeet Mabry Department: Room: Gender: Male Consumer Safety Officer: : 1990 Requested By: Richadr Cuevas Order Number: [id number] Rose MD: Kevan Rosen M.D. Measurements Intervals [place] Rate: 97 P: 41 [place]: 146 QRS: 45 QRSD: 97 T: 56 QT: 340 QTc: 432 Interpretive Statements SINUS RHYTHM WITH SINUS ARRHYTHMIA Compared to ECG 06/19/2020 13:26:44 No significant changes Electronically Signed On 07-13-2022 22:00:58 CDT by Kevan Rosen M.D. [email or web address]idianWinmedicalad[facility] centerVery [place] [id number]
--- NOTE | 2022-07-13 07:10 | W.ED.SEIZURE ---
HPI - Seizure General: Chief Complaint: Seizure Stated Complaint: SEIZURES Time Seen by Provider: 07/13/22 07:02 Source: patient Mode of arrival: EMS Limitations: altered mental status History of Present Illness: HPI Narrative: 32-year-old male presents via EMS with reported history of multiple seizures yesterday and this morning. He has a known seizure disorder according to EMS he seen Heriberto in the past and has history from the however reviewing her medical records I do not see that he seen Dr. Louis since October 2019. There is no listed medications. Patient at this point is very postictal has not really much help with history. He knows he is at the hospital he is able to tell me he had a seizure. He does not recall if he ran out of her stop taking any of his medications he does not really respond to any other questions. Initially after arrival patient is in a sinus tachycardia. There is no family members at the bedside EMS reported to being at the scene. Was able to talk to the patient's significant other by phone. She reports that around 10 AM yesterday the patient had a seizure and then another 1 at 2 AM and 5 AM this morning he never really recovered from the 2 and 5 AM seizures. She states usually he is lethargic and then somewhat argumentative for about 15 to 20 minutes after he has a seizure then recovers. She reports that he stopped taking any medications because he did not like the side effects. He she reports also that he has about 1 seizure every 2 to 3 months the frequency of the seizures in the last 24 hours is very unusual for him. She confirms that he has not seen Dr. Louis in a number of years because he did not like any of the medications he felt they made him angry and he fought with her more often. Patient reportedly drinks occasionally but does smoke marijuana 2-3 times a day. Another acquaintance who came to the bedside later also reported that the patient uses methamphetamines. The girlfriend reported he has no significant past medical history the only surgery she is aware of that he is ever had as a surgery on his ears when he was young child. complaint: seizure Onset (ago): day(s) Witnessed: Yes - by Bystander () Trauma: No Seizure History: Yes Place: Home Review of Systems General: Reports: ROS unobtainable due to mental status PFS ED PFSH: Medical History Seizures Social History Smoking and tobacco status: current every day smoker Current gender identity: Male Physical Exam Const: GENERAL APPEARANCE: lethargic ORIENTATION/CONSCIOUSNESS: Yes lethargic HENMT: COMMON NORMALS: normocephalic, atraumatic and hearing grossly normal bilaterally HEAD & SCALP: normocephalic and atraumatic Eye: COMMON NORMALS: Equal, round and reactive pupils present, EOMs intact bilaterally, conjunctivae normal and no scleral icterus CONJUNCTIVA: Yes conjunctivae normal PUPIL: Yes Equal, round and reactive pupils present Neck/C-Spine: COMMON NORMALS: full ROM, no lymphadenopathy, supple and no JVD Resp: COMMON NORMALS: normal respiratory effort, No retractions, No use of accessory muscles and clear to auscultation bilaterally AUSCULTATION: clear to auscultation bilaterally Cardio: COMMON NORMALS: no JVD, regular rate, regular rhythm and No murmurs present (Cardio) RATE: regular rate RHYTHM: regular rhythm GI: COMMON NORMALS: Soft to palpation and No hepatosplenomegaly present AUSCULTATION: Yes normoactive bowel sounds PALPATION: Yes Soft to palpation, No Tenderness to palpation present (GI), No Guarding due to palpation present (GI) and Yes No hepatosplenomegaly present Extremity: COMMON NORMALS: normal to inspection, capillary refill normal, no clubbing, cyanosis or edema, no calf tenderness and no pedal edema Neuro: SENSORIUM/ORIENTATION: Yes lethargic Skin: COMMON NORMALS: no rashes or lesions noted GENERAL SKIN EXAM: no rashes or lesions noted Course Vital Signs: Vital signs: Vital Signs Temperature 98.8 F 07/13/22 06:54 Pulse Rate 98 07/13/22 11:00 Respiratory Rate 19 H 07/13/22 11:00 Blood Pressure 134/93 07/13/22 11:00 Pulse Oximetry 96 07/13/22 11:00 Oxygen Delivery Me thod 07/13/22 07:32 Oxygen Flow Rate 5 07/13/22 07:32 MDM - Seizure MDM Narrative Medical decision making narrative: Patient had a fourth seizure at around 7:30 AM 40 minutes after arriving here. I witnessed a seizure as generalized tonic-clonic seizure. The Keppra had just been started. He was given 2 mg of Versed. Postictally he was combative and sonorous. A nasal trumpet was placed along with supportive oxygen which did improve his oxygen saturations. He continued to be combative and was given another milligram of Versed. We do not have any neurologic coverage over this weekend. Organ to go ahead make arrangements for transfer. At this time a sister of the girlfriend is at the bedside and is the only acquaintance or family member who is come to the ER to this point. Discussed Dr. Mcdonald at [facility] he is hospitalist. He is willing to accept the patient we will have neurology see him. We both shared some concerns about the patient needing to be intubated. He was monitored for another hour he actually improved significantly we are able to remove the nasal trumpet and stop the supplemental oxygen. Patient was more awake and alert he agreed to transfer. Call Dr. Mcdonald back he was agreeable to taking the patient on transfer will transfer via [facility] at this time. Has not needed any further Versed and has not had any recurrent seizures since the last shortly after which she received the Keppra. Medical Records Attestation: I reviewed the patient's medical records. Lab Data Attestation: I reviewed the patient's lab results. Result diagrams: 07/13/22 07:00 07/13/22 07:00 Labs: Laboratory Results WBC 11.0 10^3/uL (4.0-10.0) H 07/13/22 07:00 RBC 5.21 10^6/uL (4.1-5.3) 07/13/22 07:00 Hgb 15.4 g/dL (11.7-16.6) 07/13/22 07:00 Hct 44.7 % (42.0-52.0) 07/13/22 07:00 MCV 85.8 fl (80-94) 07/13/22 07:00 MCH 29.6 pg (28.0-34.0) 07/13/22 07:00 MCHC 34.5 g/dL (30.0-36.0) 07/13/22 07:00 RDW 13.2 % (12.1-15.1) 07/13/22 07:00 Plt Count 248 10^3/cmm (130-400) 07/13/22 07:00 MPV 10.2 fL (7.4-10.4) 07/13/22 07:00 Neut % (Auto) 75.4 % 07/13/22 07:00 Lymph % (Auto) 16.3 % 07/13/22 07:00 [place] % (Auto) 6.8 % 07/13/22 07:00 Eos % (Auto) 0.4 % 07/13/22 07:00 Baso % (Auto) 0.6 % 07/13/22 07:00 Neut # (Auto) 8.26 10^3/uL (1.8-7.7) H 07/13/22 07:00 Lymph # (Auto) 1.8 10^3/uL (0.8-4.8) 07/13/22 07:00 [place] # (Auto) 0.8 10^3/uL (0.2-0.9) 07/13/22 07:00 Eos # (Auto) 0.0 10^3/uL (0.0-0.8) 07/13/22 07:00 Baso # (Auto) 0.1 10^3/uL (0.0-0.1) 07/13/22 07:00 Nucleated RBC % (auto) 0 % 07/13/22 07:00 Nucleated RBCs # 0.0 /100WBC 07/13/22 07:00 Specimen Type Arterial 07/13/22 07:55 Sample Site Brachial, right 07/13/22 07:55 ABG pH 7.23 (7.35-7.45) L 07/13/22 07:55 ABG pCO2 38.7 mmHg (35-45) 07/13/22 07:55 ABG pO2 87.8 mmHg (80.0-100.0) 07/13/22 07:55 ABG HCO3 16.2 mmol/L (22-26) L 07/13/22 07:55 ABG O2 Saturation 95.0 07/13/22 07:55 ABG Base Excess -10.7 mmol/L (-2.0-2.0) L 07/13/22 07:55 Daniel Test N/a 07/13/22 07:55 A-a O2 Gradient 1.9 mmHg (5-10) L 07/13/22 07:55 Hematocrit 48.6 % (42-52) 07/13/22 07:55 Hgb O2 Saturation 92.5 % (95-100) L 07/13/22 07:55 Carboxyhemoglobin 1.7 %THgb (0.4-20.1) 07/13/22 07:55 Methemoglobin 1.0 % (0.4-1.5) 07/13/22 07:55 Total Hemoglobin 15.9 g/dL (14-18) 07/13/22 07:55 Sodium 143.0 mmol/L (131-143) 07/13/22 07:55 Potassium 3.9 mmol/L (3.5-5.0) 07/13/22 07:55 Glucose 127.0 mg/dL (70-115) H 07/13/22 07:55 Ionized Calcium 1.3 mmol/L (1.1-1.4) 07/13/22 07:55 O2 Delivery Device Room air 07/13/22 07:55 FiO2 21.0 % 07/13/22 07:55 Railway Signal Technician ID Ed 07/13/22 07:55 Sodium 136 mmol/L (136-145) 07/13/22 07:00 Potassium 3.9 mmol/L (3.5-5.1) 07/13/22 07:00 Chloride 102 mmol/L (98-107) 07/13/22 07:00 Carbon Dioxide 23 mmol/L (22-29) 07/13/22 07:00 Anion Gap 14.9 (5-19) 07/13/22 07:00 BUN 14 mg/dL (6-20) 07/13/22 07:00 Creatinine 1.0 mg/dL (0.7-1.2) 07/13/22 07:00 GFR Calculation 86.6 mL/min (90-130) L 07/13/22 07:00 Glucose 119 mg/dL (65-115) H 07/13/22 07:00 Calculated Osmolality 284 mOsm/kg (285-295) L 07/13/22 07:00 Calcium 9.0 mg/dL (8.5-10.5) 07/13/22 07:00 Total Bilirubin 0.2 mg/dL (0.15-1.2) 07/13/22 07:00 AST 22 U/L (0-40) 07/13/22 07:00 ALT 34 U/L (0-41) 07/13/22 07:00 Alkaline Phosphatase 98 U/L (40-130) 07/13/22 07:00 Total Protein 7.5 g/dL (6.6-8.7) 07/13/22 07:00 Albumin 4.1 g/dL (3.5-5.2) 07/13/22 07:00 Globulin 3.4 g/dL (1.3-4.6) 07/13/22 07:00 Urine Color Yellow (Yellow) 07/13/22 09:00 Urine Appearance Clear (CLEAR) 07/13/22 09:00 Urine pH 5.5 (5-7) 07/13/22 09:00 Ur Specific [place] >= 1.030 (1.005-1.030) 07/13/22 09:00 Urine Protein 2+ 07/13/22 09:00 Urine Glucose (UA) Negative (Normal) 07/13/22 09:00 Urine Ketones Negative (Negative) 07/13/22 09:00 Urine Blood Negative (Negative) 07/13/22 09:00 Urine Nitrate Negative 07/13/22 09:00 Urine Bilirubin Negative (Negative) 07/13/22 09:00 Urine Urobilinogen 0.2 mg/dL (Negative) 07/13/22 09:00 Ur Leukocyte Esterase Negative (Negative) 07/13/22 09:00 Urine RBC None /hpf (0-2) 07/13/22 09:00 Urine WBC None /hpf (0-5) 07/13/22 09:00 Ur Squamous Epith Cells None /hpf (0-5) 07/13/22 09:00 Amorphous Sediment 1+ /hpf 07/13/22 09:00 Urine Bacteria Trace /hpf (NONE) 07/13/22 09:00 Urine Opiates Screen Negative ng/mL (Negative) 07/13/22 09:00 Ur Barbiturates Screen Negative ng/mL (Negative) 07/13/22 09:00 Ur Phencyclidine Scrn Negative ng/mL (Negative) 07/13/22 09:00 Ur Amphetamines Screen Positive ng/mL (Negative) H 07/13/22 09:00 U Benzodiazepines Scrn Positive ng/mL (Negative) H 07/13/22 09:00 Urine Cocaine Screen Negative ng/mL (Negative) 07/13/22 09:00 U Marijuana (THC) Screen Positive ng/mL (Negative) H 07/13/22 09:00 Discharge Plan Discharge Patient Disposition: Xfer Short-Term Hosp Clinical Impression: Generalized seizure Condition: Stable Coding Level of Care Code ED Clinical Business Manager for Yumi Fwelroy Exam Comprehensive
[2022-07-13 07:24] LABS: Basophils # 0.1 10^3/uL (0.0-0.1); Basophils % 0.6 %; Eosinophils % 0.4 %; Hematocrit 44.7 % (42.0-52.0); Hemoglobin 15.4 g/dL (11.7-16.6); Lymphocytes # 1.8 10^3/uL (0.8-4.8); Lymphocytes % 16.3 %; Mean Corpuscular HGB Conc 34.5 g/dL (30.0-36.0); Mean Corpuscular Hemoglobin 29.6 pg (28.0-34.0); Mean Corpuscular Volume 85.8 fl (80-94); Mean Platelet Volume 10.2 fL (7.4-10.4); Monocytes # 0.8 10^3/uL (0.2-0.9); Monocytes % 6.8 %; Neutrophils # 8.26 10^3/uL (1.8-7.7); Neutrophils % 75.4 %; Nucleated Red Blood Cells % 0 %; Platelet Count 248 10^3/cmm (130-400); Red Blood Count 5.21 10^6/uL (4.1-5.3); Red Cell Distribution Width 13.2 % (12.1-15.1)
[2022-07-13 07:36] LABS: Alanine Aminotransferase 34 U/L (0-41); Albumin Level 4.1 g/dL (3.5-5.2); Alkaline Phosphatase 98 U/L (40-130); Anion Gap 14.9 (5-19); Aspartate Amino Transferase 22 U/L (0-40); Blood Urea Nitrogen 14 mg/dL (6-20); Carbon Dioxide 23 mmol/L (22-29); Chloride 102 mmol/L (98-107); Globulin 3.4 g/dL (1.3-4.6); Glomerular Filtration Rate 86.6 mL/min (90-130); Glucose 119 mg/dL (65-115); Osmolality Calculated 284 mOsm/kg (285-295); Potassium 3.9 mmol/L (3.5-5.1); Sodium 136 mmol/L (136-145); Total Bilirubin 0.2 mg/dL (0.15-1.2); Total Protein 7.5 g/dL (6.6-8.7)
[2022-07-13] MEDS: midazolam 1 mg/mL INJ 2 mL 2 MG IVP (07:43)
--- NOTE | 2022-07-13 07:43 | PC.NURSE ---
IN ROOM WHEN PT STARTED TO HAVE A SEIZURE. EPISODE STARTED AT 0736 AND LASTED UNTIL APPROXIMATELY 0738. DR. HOLLIS ARRIVED AND GAVE VERBAL ORDER TO INSERT NASAL TRUMPET AND GIVE 2MG VERSED IVP.
--- NOTE | 2022-07-13 07:55 | PC.NURSE ---
PT BECAME COMBATIVE IN HIS POST SEIZURE CONFUSION. DR HOLLIS GAVE VERABL ORDER FOR PT TO BE PLACED IN SOFT RESTRAINTS.
[2022-07-13 08:05] LABS: ABG PCO2 38.7 mmHg (35-45); ABG PH Result 7.23 (7.35-7.45); Alveolar-Arterial Oxygen Gradi 1.9 mmHg (5-10); Arterial Blood Gas Hematocrit 48.6 % (42-52); Base Excess ABG -10.7 mmol/L (-2.0-2.0); Blood Gas Operator Identificat ED; Blood Gas Sample Site Brachial, right; Blood Gas Sample Type Arterial; Carboxyhemoglobin 1.7 %THgb (0.4-20.1); HCO3 ABG 16.2 mmol/L (22-26); HGB O2 Sat 92.5 % (95-100); Ionized Calcium Level - ABG 1.3 mmol/L (1.1-1.4); Oxygen Device ROOM AIR; PO2 ABG 87.8 mmHg (80.0-100.0); Potassium Level - ABG 3.9 mmol/L (3.5-5.0); Total Hemoglobin 15.9 g/dL (14-18)
[2022-07-13] MEDS: midazolam 1 mg/mL INJ 2 mL IVP (08:07)
[2022-07-13 09:24] LABS: Bilirubin Urine Negative (Negative); Blood Urine Negative (Negative); Glucose Urine UA Negative (Normal); Ketones Urine Negative (Negative); Leukocyte Esterase Urine Negative (Negative); Nitrate Urine Negative; Protein Urine 2+; Specific Gravity, Urine >= 1.030 (1.005-1.030); Urine Appearance Clear (CLEAR); Urine Color Yellow (Yellow); Urobilinogen Urine 0.2 mg/dL (Negative); pH Urine 5.5 (5-7)
--- NOTE | 2022-07-13 09:26 | PC.NURSE ---
pt soft restraints removed. pt nasal trumpet removed. pt satting 96% on 2L NC
[2022-07-13 09:31] LABS: Add Urine Microscopic? YES
[2022-07-13 09:35] LABS: Amorphous Sediment Urine 1+ /hpf; Bacteria Urine TRACE /hpf
[2022-07-13 09:36] LABS: Add Urine Culture? No
[2022-07-13 09:39] LABS: Amphetamines Screen Urine Positive (Negative); Barbiturates Screen Urine Negative (Negative); Benzodiazepines Screen Urine Positive (Negative); Cocaine Screen Urine Negative (Negative); Opiate Screen Urine Negative (Negative); PCP Screen Urine Negative (Negative); THC Screen Urine Positive (Negative)
[2022-07-13 11:11] LABS: SARS Covid-2 Antigen Negative (Negative)
== END 2022-07-13 12:20 | disposition short-term general hospital (02) ==
PROVIDERS: Emergency Provider Family Medicine
DX: G40.89 Other seizures (principal); F17.210 Nicotine dependence, cigarettes, uncomplicated; Z20.822 Contact with and (suspected) exposure to COVID-19
CPT/HCPCS: 36600; 80051; 80053; 80306; 81001; 82330; 82805; 85025; 87426; 93005; 96365; 99285; J1953; J2250

== ENCOUNTER 2022-10-08 11:17 | Emergency (ER) | payer SELFPAY ==
[2022-10-08 11:23] VITALS: BP 129/76; PULSE 117; RESP 17; TEMP 36.8; O2SAT 98; BMI 30.3
--- NOTE | 2022-10-08 11:27 | XRR_ITS ---
PROCEDURE INFORMATION: Exam: XR Right Hand Exam date and time: 10/08/2022 11:33 AM Age: 32 years old Clinical indication: Right hand pain. Punched a freezer and now has pain in hand TECHNIQUE: Imaging protocol: Radiologic exam of the Right hand. Views: 3 or more views. COMPARISON: No relevant prior studies available. FINDINGS: Bones/joints: There is a mildly comminuted, mildly displaced fracture involving the proximal epiphysis and metaphysis of the 4th metacarpal. Small ossific fragment adjacent to the hamate and proximal 5th metacarpal suspicious for fracture. The scapholunate and lunotriquetral intervals are maintained. No chondrocalcinosis is seen. Soft tissues: Dorsal and medial soft tissue swelling. Small radiodense foreign body in the radial soft tissues of the distal 3rd finger. XR/XR hand RT min 3V* [id number] IMPRESSION: 1. Mildly comminuted, mildly displaced fracture involving the proximal epiphysis and metaphysis of the 4th metacarpal. 2. Small ossific fragment adjacent to the hamate and proximal 5th metacarpal suspicious for fracture. 3. Small radiodense foreign body in the radial soft tissues of the distal 3rd finger. 4. Dorsal and medial soft tissue swelling.
--- NOTE | 2022-10-08 11:43 | ED_ITS ---
HPI - Extremity Problem General: Chief complaint: Extremity Injury, Upper Stated complaint: injury to right hand Time Seen by Provider: 10/08/22 11:27 History of Present Illness: Patient is a 32-year-old male comes to the ED with right hand injury. Injury occurred 2 days ago. Patient says he got angry and punched a freezer. After punching the freezer he had pain and swelling in his right hand. He now has 9 out of 10 pain in his right hand. Any movement of fingers on right hand causes worsening pain. Associated symptoms: Deny chest pain, fever(s) or rash Review of Systems Const: Denies: fever(s), chills or fatigue Eyes: Denies: change in vision or eye discomfort ENMT: Denies: throat pain, odynophagia, nasal discharge or nasal congestion Card: Denies: chest pain, palpitations, edema, swelling of feet/ankles, dyspnea on exertion or orthopnea Resp: Denies: dyspnea, productive cough or non-productive cough GI: Denies: abdominal pain, nausea, vomiting, diarrhea, constipation or hematochezia : Denies: flank pain, difficulty urinating, dysuria or hematuria Musc: Reports: extremity pain (Right hand) and extremity swelling (Right hand); Denies: neck pain or back pain Skin/Breast: Denies: rash or new lesions Neuro: Denies: headache(s), numbness in extremities or weakness in extremities PFSH ED PFSH: Medical History Seizures Surgical History History of myringoplasty Family History Other Diabetes Hypertension Stroke Denies family history of CAD (coronary artery disease) Dementia Chronic kidney disease (CKD) Lung disease Cancer Social History Smoking and tobacco status: current every day smoker Second hand smoke exposure: No Smoking risk assessment/counseling performed?: Yes Alcohol intake: current Alcohol intake frequency: holidays/special occasions only Desire information about alcohol rehabilitation?: No Counseling given: No Desire information about substance/drug rehabilitation?: No Counseling given: No Adopted: No Caregiver/support person: No Lives independently: Yes Household members: significant other and family Housing: House Marital status: Life Partner Number of children: 2 service: No Current occupational status: employed Current occupation: [employer] Pets and animals: Yes History of recent travel: No Current gender identity: Male Physical Exam Const: COMMON NORMALS: patient oriented x3 and alert GENERAL APPEARANCE: cooperative HENMT: COMMON NORMALS: normocephalic HEAD & SCALP: normocephalic MOUTH: Normal oral and palatal mucosa present THROAT: posterior oropharynx normal and uvula midline Neck/C-Spine: COMMON NORMALS: supple GENERAL: Yes normal visual inspection Resp: COMMON NORMALS: normal respiratory effort, No retractions, No use of accessory muscles and clear to auscultation bilaterally AUSCULTATION: clear to auscultation bilaterally Cardio: COMMON NORMALS: regular rate, regular rhythm, S1 normal heart sound present, S2 normal heart sound present, No gallops present (Cardio), No clicks present (Cardio), No murmurs present (Cardio) and Peripheral pulses 2+ throughout RATE: regular rate RHYTHM: regular rhythm HEART SOUNDS: S1 normal heart sound present and S2 normal heart sound present PERIPHERAL PULSES: Peripheral pulses 2+ throughout GI: COMMON NORMALS: Normal to inspection, nondistended, normoactive bowel sounds present, Soft to palpation, non-tender and no masses PALPATION: Yes Soft to palpation : COMMON NORMALS: Yes no CVA tenderness BLADDER/KIDNEY EXAM: Yes no CVA tenderness Back/Pelvis: COMMON NORMALS: no CVA tenderness Extremity: NARRATIVE EXTREMITY EXAM: Right hand?significant swelling and ecchymosis. No visible deformity seen. Tenderness over fourth and fifth metacarpal. Neurovascular intact distally. Limited range of motion in fingers due to pain. Neuro: COMMON NORMALS: patient oriented x3 SENSORIUM/ORIENTATION: Yes alert GAIT: Yes Normal gait present Skin: GENERAL SKIN EXAM: dry skin Course Vital Signs: Vital signs: Vital Signs Temperature 98.2 F 10/08/22 11:23 Pulse Rate 117 H 10/08/22 11:23 Respiratory Rate 17 10/08/22 11:23 Blood Pressure 129/76 10/08/22 11:23 Pulse Oximetry 98 10/08/22 11:23 Oxygen Delivery Me thod 10/08/22 11:23 MDM - Extremity (Nontraumatic) Medical Decision Making Patient is a 32-year-old male who comes to the ED with right hand injury. Patient punched a freezer with her right hand and is having pain and swelling in right hand.Right hand?significant swelling and ecchymosis. No visible deformity seen. Tenderness over fourth and fifth metacarpal. Neurovascular intact distally. Limited range of motion in fingers due to pain. X-ray of right hand shows mildly comminuted and mildly displaced fracture involving the proximal epiphysis and metaphases of the fourth metacarpal. Also small ossific fragment adjacent to the hamate and proximal fifth metacarpal suspicious for fracture as well. Patient was put in an ulnar gutter splint and an order was placed with case management for patient referred to Ortho for follow-up. Told to follow-up with PCP within the next week for reevaluation. He was sent home with a prescription for hydrocodone to help with pain. Patient understood and agreed with plan. Lab Data Radiology Impressions Hand X-Ray 10/08/22 11:27 IMPRESSION: 1. Mildly comminuted, mildly displaced fracture involving the proximal epiphysis and metaphysis of the 4th metacarpal. 2. Small ossific fragment adjacent to the hamate and proximal 5th metacarpal suspicious for fracture. 3. Small radiodense foreign body in the radial soft tissues of the distal 3rd finger. 4. Dorsal and medial soft tissue swelling. Discharge Plan Discharge Patient Disposition: Home Clinical Impression: Fracture, metacarpal Qualifiers: Encounter type: initial encounter Metacarpal bone: fourth Fracture type: closed Metacarpal location: base Fracture alignment: displaced Laterality: right Qualified Code(s): S62.314A - Displaced fracture of base of fourth metacarpal bone, right hand, initial encounter for closed fracture Condition: Stable Prescriptions: New ibuprofen 800 mg tablet 800 mg PO Q8H PRN (Reason: pain) Qty: 30 0RF No Action (DME) ulnar gutter splint See Rx Instructions .Route .MEDSUPPLY Qty: 1 0RF Rx Instructions: As directed zonisamide 50 mg capsule 50 mg PO Q12H Qty: 60 1RF Discharge Orders: Discharge ED (Routine); Ordered 10/08/22 Ordered By: Donald Montana Discharge Diet: Regular Discharge Activity: Limit activity as instructed Patient Instructions: Boxer Fracture (ED), Opioid Safety Activity Restrictions/Additional Instructions: Follow-up with medical provider as directed. Case management should contact you in the next several days to set up an appointment with Ortho for follow-up and further management of hand fracture. Take medications as prescribed. Keep splint on and dry and limit activity with right hand until cleared by Ortho. Return to the ER or your medical provider if condition worsens. Please read and understand discharge instructions. Thank you for choosing [facility] for your healthcare needs today. Please realize this is an emergency room and that we are providing you with a medical screening exam and this may not be complete and all inclusive of all the testing and or work up that you may need to determine your ailment or severity of your illness. It is very important that you follow up as instructed or that you return to the Emergency Department should you have concerns or if your cond ition changes or worsens in any way. Coding Level of Care Code ED Head Piece Assembler for Yumi Clifford Exam Comprehensive
[2022-10-08] MEDS: HYDROcodone-acetaminophen 7.5-325 mg Tablet 1 TAB PO (11:58)
--- NOTE | 2022-10-08 12:32 | DCPLANNER ---
Addendum entered by Phoebe Ortega 10/17/22 10:59: Patient had a follow up appointment scheduled with ortho - patient did attend appointment. Addendum entered by Phoebe Ortega 10/09/22 08:59: Patient has a follow up appointment scheduled for , October 09, 2022 at 10:[address] Ramos at ortho. clinic will call patient with appointment information. Original Note: grain operations manager had message to schedule a follow up appointment for patient with ortho. grain operations manager sent patients information to the front office staff at ortho. Patients information will be printed and reviewed. Clinic will call patient with appointment information.
== END 2022-10-08 12:46 | disposition home or self-care (01) ==
PROVIDERS: Emergency Provider Physician Assistant
DX: S62.314A Displaced fracture of base of fourth metacarpal bone, right hand, initial encounter for closed fracture (principal); F17.210 Nicotine dependence, cigarettes, uncomplicated; W22.09XA Striking against other stationary object, initial encounter
CPT/HCPCS: 29125; 73130; 99283

== ENCOUNTER 2022-10-09 11:47 | Outpatient (CLI) | payer SELFPAY | END 2022-10-09 11:48 | disposition home or self-care (01) | LOC: SPT 11:47 | PROVIDERS: Visit Provider Specialist | DX: Z46.89 Encounter for fitting and adjustment of other specified devices (principal); S62.314D Displaced fracture of base of fourth metacarpal bone, right hand, subsequent encounter for fracture with routine healing; X58.XXXD Exposure to other specified factors, subsequent encounter | CPT/HCPCS: 97760; L3984 ==

== ENCOUNTER → 2022-10-22 14:16 | Outpatient (BNVA) | payer OTHER, SELFPAY | PROVIDERS: Visit Provider Specialist | DX: S62.314D Displaced fracture of base of fourth metacarpal bone, right hand, subsequent encounter for fracture with routine healing (principal); X58.XXXD Exposure to other specified factors, subsequent encounter; R56.9 Unspecified convulsions | CPT/HCPCS: 73130 ==

== ENCOUNTER → 2023-04-17 11:32 | Outpatient (BNVA) | payer OTHER, SELFPAY | PROVIDERS: Visit Provider Nurse Practitioner | DX: R56.9 Unspecified convulsions (principal); R73.9 Hyperglycemia, unspecified; F41.9 Anxiety disorder, unspecified; G47.62 Sleep related leg cramps | CPT/HCPCS: 80053; 80203; 83036; 85025 ==

== ENCOUNTER 2023-07-08 09:28 | Emergency (ER) | payer OTHER, SELFPAY ==
--- NOTE | 2023-07-08 09:37 | XRR_ITS ---
PROCEDURE INFORMATION: Exam: XR Left Knee Exam date and time: 07/08/2023 10:02 AM Age: 33 years old Clinical indication: Pain; Knee; Left; Additional info: Injury/pain TECHNIQUE: Imaging protocol: Radiologic exam of the left knee. Views: 3 views. COMPARISON: No relevant prior studies available. FINDINGS: Bones/joints: Accessory ossicle in the distal patellar tendon. Otherwise, unremarkable. Soft tissues: Normal. XR/XR knee LT 3V* [id number] IMPRESSION: No acute findings.
--- NOTE | 2023-07-08 09:37 | W.ED.LOWEXIN ---
HPI - Extremity Injury (Lower) General: Chief Complaint: Extremity Problem,Nontraumatic Stated Complaint: LT knee inj Time Seen by Provider: 07/08/23 09:37 Source: patient Mode of arrival: ambulatory Limitations: no limitations History of Present Illness: Patient is a 33-year-old male who presents to ED today with complaint of left knee pain/injury. He states yesterday at work he was jumping over a box to try to get out of the way when he injured the left knee. He complains of pain to the medial aspect. He has not noticed significant swelling. He states he is ambulatory by hobbling on it . He has no other injuries or complaints at this time. MD complaint: knee injury Onset (ago): day(s) Injury: Left: knee Place: work Severity: moderate Relieving factors: immobilization Exacerbating factors: weight bearing, movement and palpation Context: jumping Associated symptoms: Reports inability to bear weight Other symptoms: none Review of Systems Musc: Reports: joint pain (L knee); Denies: neck pain, back pain, extremity pain, extremity swelling or joint swelling Neuro: Reports: difficulty walking (secondary to knee pain); Denies: numbness in extremities, weakness in extremities or sensory changes PFSH ED PFSH: Medical History Obesity (BMI 30.0-34.9) Seizures Surgical History History of myringoplasty Family History Other Diabetes Hypertension Stroke Denies family history of CAD (coronary artery disease) Dementia Chronic kidney disease (CKD) Lung disease Cancer Social History Smoking and tobacco status: current every day smoker Second hand smoke exposure: No Smoking risk assessment/counseling performed?: Yes Alcohol intake: current Alcohol intake frequency: holidays/special occasions only Alcohol type: beer Desire information about alcohol rehabilitation?: No Counseling given: No Substance/Drug Use: current Desire information about substance/drug rehabilitation?: No Counseling given: No Adopted: No Caregiver/support person: No Lives independently: Yes Household members: significant other and family Housing: House Marital status: Life Partner Number of children: 2 service: No Current occupational status: employed Current occupation: [employer] Pets and animals: Yes Do you think of yourself as: Straight/Heterosexual Current gender identity: Male Physical Exam Const: COMMON NORMALS: no acute distress, patient oriented x3, no limitations, healthy appearing, alert and well nourished Extremity: COMMON NORMALS: full ROM, capillary refill normal, no joint enlargement, no clubbing, cyanosis or edema, no calf tenderness and no pedal edema GENERAL: Yes normal exam except as noted LEFT LOWER EXTREMITY: Yes knee joint (TTP medial joint line without instability) Left knee: Yes ROM (normal), Yes neurovascular exam (normal) and Yes special tests (TTP with valgus stress) Neuro: COMMON NORMALS: patient oriented x3, moves all extremities, no focal motor deficits and no sensory deficits noted SENSORIUM/ORIENTATION: Yes alert Course Vital Signs: Vital signs: Vital Signs Temperature 98.3 F 07/08/23 09:39 Pulse Rate 101 H 07/08/23 09:39 Respiratory Rate 18 07/08/23 09:39 Blood Pressure 131/93 07/08/23 09:39 Pulse Oximetry 95 07/08/23 09:39 Oxygen Delivery Me thod Room Air 07/08/23 09:39 MDM - Extremity Injury (Lower) Medical Decision Making XR negative. Will RON wrap/crutches/RICE therapy/weight bearing as tolerated and he will follow up with Worker's Comp. Lab Data Radiology Impressions Knee X-Ray 07/08/23 09:37 IMPRESSION: No acute findings. All radiology interpretation(s) finalized by discharge Discharge Plan Discharge Patient Disposition: Home Clinical Impression: Injury of knee, left Qualifiers: Encounter type: initial encounter Qualified Code(s): S89.92XA - Unspecified injury of left lower leg, initial encounter Condition: Stable Prescriptions: No Action zonisamide 100 mg capsule 100 mg PO Q12H Qty: 60 0RF magnesium oxide 400 mg magnesium tablet 800 mg PO DAILY PRN (Reason: unknown) Discharge Orders: Discharge ED (Routine); Ordered 07/08/23 Ordered By: Haily Schulz Referrals: Angela Rueda, [facility] [Primary Care Provider] - Activity Restrictions/Additional Instructions: As we discussed you may begin taking [id number] anti-inflammatories. Ice and elevate the extremity. You may use the crutches as needed for weightbearing. Please follow-up with Worker's Comp. as directed. Coding Level of Care Code ED Rvda Master Certified Rv Technician for Yumi Clifford
[2023-07-08 09:39] VITALS: BP 131/93; PULSE 101; RESP 18; TEMP 36.8; O2SAT 95; BMI 30.3
[2023-07-08 10:42] VITALS: BP 131/93; PULSE 101; O2SAT 96
== END 2023-07-08 10:46 | disposition home or self-care (01) ==
PROVIDERS: Emergency Provider Physician Assistant; PCP Nurse Practitioner
DX: S89.92XA Unspecified injury of left lower leg, initial encounter (principal); F17.210 Nicotine dependence, cigarettes, uncomplicated; X58.XXXA Exposure to other specified factors, initial encounter
CPT/HCPCS: 73562; 99283

== ENCOUNTER 2023-07-29 10:58 | Outpatient (CLI) | payer OTHER, SELFPAY ==
[2023-07-29 12:34] LABS: Valproic Acid Level 35.1 ug/mL (50-100)
== END 2023-07-29 10:59 | disposition home or self-care (01) ==
LOC: LAB 11:01
PROVIDERS: PCP Nurse Practitioner; Visit Provider Psychiatry & Neurology Neurology
DX: G40.919 Epilepsy, unspecified, intractable, without status epilepticus (principal)
CPT/HCPCS: 36415; 80164

== ENCOUNTER → 2023-11-03 15:09 | Outpatient (BNVA) | payer OTHER, SELFPAY | PROVIDERS: PCP Nurse Practitioner; Visit Provider Nurse Practitioner | DX: R00.0 Tachycardia, unspecified (principal); G47.62 Sleep related leg cramps; R56.9 Unspecified convulsions; R73.9 Hyperglycemia, unspecified; G40.919 Epilepsy, unspecified, intractable, without status epilepticus | CPT/HCPCS: 80053; 80164; 83036; 84443 ==

== ENCOUNTER → 2024-05-19 08:53 | Outpatient (BNVA) | payer OTHER, SELFPAY | PROVIDERS: PCP Nurse Practitioner; Visit Provider Nurse Practitioner | DX: R56.9 Unspecified convulsions (principal) | CPT/HCPCS: 80053; 80164; 80203; 85025 ==

== ENCOUNTER → 2025-01-03 11:42 | Outpatient (BNVA) | payer OTHER, SELFPAY | PROVIDERS: PCP Nurse Practitioner; Visit Provider Nurse Practitioner | DX: R00.0 Tachycardia, unspecified (principal); R56.9 Unspecified convulsions | CPT/HCPCS: 80053; 80061; 80164; 80203 ==

== ENCOUNTER → 2025-08-30 16:32 | Outpatient (BNVA) | payer OTHER, SELFPAY | PROVIDERS: PCP Nurse Practitioner; Visit Provider Nurse Practitioner | DX: E78.2 Mixed hyperlipidemia (principal) | CPT/HCPCS: 80053; 80061 ==